=== PATIENT | male | born 1935 | race Caucasian/White ===

== ENCOUNTER → 2016-08-27 | Outpatient (CLI) | payer OTHER ==
[~2016-08-27] MED LIST: ADVAIR HFA 230M12 GM INH; APAP650 PO; ASPIRIN325 PO; COLACE100 MG PO; DEMADEX20 MG PO; DIFLUCAN200 MG PO; DOXYCYCLINE 10100 MG PO; DOXYCYCLINE HY100 MG PO; DUONEB 2.5-0.5 M3 ML INH; FLOVENT DISKUS50 MCG IH; GABAPENTIN 100100 MG PO; GLIPIZIDE 10 MG10 MG PO; HUMALOG MI100 UNIT/6 SQ; HUMALOG100 UNIT/1 SUBQ; HYDROCODONE-AP1 EAC6 PO; INVANZ1 GM IV; KLOR-CON 1010 MEQ PO; LASIX 20 MG TAB20 MG PO; LASIX 40 MG TAB40 M2 PO; LEVAQUIN 500 M500 M4 PO; LEVEMIR SUBQ; METOLAZONE 2.52.5 M1 PO; MILK OF MA2400 MG/10 PO; MIRALAX17 GM PO; MIRAPEX1 MG PO; MUCINEX TA600 MG/TA2 PO; NORCO 5-325 TA1 EACH PO; NOVOLIN R100 UNIT/3 SUBQ; NOVOLOG100 UNIT/1 SUBQ; PLAVIX 300 MG300 M1 PO; PLAVIX 75 MG TA75 M1 PO; POTASSIUM20 PO; PREDNISONE 10 M10 M1 PO; PREDNISONE 10 M10 MG PO; PREDNISONE 20 M20 MG PO; QUALAQUIN324 MG PO; REGRANEX1 TUBE TOP; SIMVASTATIN40 MG PO; SINGULAIR 10 MG10 M1 PO; TORSEMIDE20 MG PO; UNICOMPLEX M TA1 TA1 PO; VALTREX 500 MG500 MG PO; VANCO1GM IVPB; VANCOMYCIN500 MG/VIA IV; VENTOLIN HFA 1818 GM INH; VITAMINC500 PO; ZYRTEC10 MG PO; [UNRECOGNIZED DRUG - MIXTURE]; [UNRECOGNIZED DRUG - MIXTURE] TOP
== END ==
LOC: HYPER 07:04
DX: L89.323 Pressure ulcer of left buttock, stage 3 (principal); L89.313 Pressure ulcer of right buttock, stage 3; I87.2 Venous insufficiency (chronic) (peripheral); I89.0 Lymphedema, not elsewhere classified; E11.22 Type 2 diabetes mellitus with diabetic chronic kidney disease; N18.9 Chronic kidney disease, unspecified; I50.42 Chronic combined systolic (congestive) and diastolic (congestive) heart failure; I25.10 Atherosclerotic heart disease of native coronary artery without angina pectoris; J44.9 Chronic obstructive pulmonary disease, unspecified; E11.51 Type 2 diabetes mellitus with diabetic peripheral angiopathy without gangrene; E78.00 Pure hypercholesterolemia, unspecified

== ENCOUNTER → 2016-09-13 | Outpatient (CLI) | payer OTHER | LOC: HYPER 07:06 | DX: L89.323 Pressure ulcer of left buttock, stage 3 (principal); L89.313 Pressure ulcer of right buttock, stage 3; L89.892 Pressure ulcer of other site, stage 2; I87.2 Venous insufficiency (chronic) (peripheral); I89.0 Lymphedema, not elsewhere classified; E11.69 Type 2 diabetes mellitus with other specified complication; E11.22 Type 2 diabetes mellitus with diabetic chronic kidney disease; N18.9 Chronic kidney disease, unspecified; I50.42 Chronic combined systolic (congestive) and diastolic (congestive) heart failure; E11.51 Type 2 diabetes mellitus with diabetic peripheral angiopathy without gangrene; J44.9 Chronic obstructive pulmonary disease, unspecified; I25.10 Atherosclerotic heart disease of native coronary artery without angina pectoris; E78.00 Pure hypercholesterolemia, unspecified ==

== ENCOUNTER → 2016-09-18 | Outpatient (CLI) | payer OTHER ==
[~2016-09-18] VITALS: Ht 162.6 cm; Wt 103.9 kg
[~2016-09-18] MED LIST changes: +ALBUTEROL2.5 MG/31 INH; +ANUSOL-HC25 MG RECTAL; +ATIVAN0.5 MG PO; +BISACODYL SUPP10 MG RECTAL; +BREO ELLIPTA 11 EACH INH; +GABAPENTIN100 MG PO; +LASIX 80 MG TAB80 MG PO; +LEVEMIR SQ; +LIPITOR 20 MG T20 M1 PO; +MINTOX PLUS TA1 EACH PO; +NOVOLOG100 UNIT/1 SQ; +NYSTATIN1 EA10 TOP; +PROAIR HFA8.5 GM INH; +PROTONIX40 M1 PO; +TRAZODONE HCL50 MG PO
[2016-09-18 12:29] VITALS: BP 124/66
[2016-09-18 12:47] LABS: HEMATOCRIT 31.5 % (42.0-52.0); HEMOGLOBIN 10.1 gm/dL (14.0-18.0); MCH 28.6 pg (26.0-34.0); MCHC 32.2 g/dL (28.0-37.0); MCV 88.8 fL (80.0-100.0); RBC 3.54 mil/uL (4.50-6.00); RDW 16.1 % (10.5-14.5)
[2016-09-18 12:54] LABS: CALCIUM 8.4 mg/dL (8.5-10.1); CREATININE 1.9 mg/dL (0.7-1.3); POTASSIUM 3.5 mmol/L (3.5-5.1)
[2016-09-18 13:12] LABS: INR 1.1; PROTIME 11.5 Seconds (9.3-11.4)
[2016-09-18 17:09] VITALS: BP 134/54
== END ==
LOC: SPEC 11:56
PROVIDERS: Radiology Vascular & Interventional Radiology
DX: Z45.2 Encounter for adjustment and management of vascular access device (principal); E11.40 Type 2 diabetes mellitus with diabetic neuropathy, unspecified; E11.21 Type 2 diabetes mellitus with diabetic nephropathy; I73.9 Peripheral vascular disease, unspecified; J44.9 Chronic obstructive pulmonary disease, unspecified; I12.9 Hypertensive chronic kidney disease with stage 1 through stage 4 chronic kidney disease, or unspecified chronic kidney disease; E11.22 Type 2 diabetes mellitus with diabetic chronic kidney disease; N18.3 Chronic kidney disease, stage 3 (moderate); I25.10 Atherosclerotic heart disease of native coronary artery without angina pectoris; I50.9 Heart failure, unspecified; Z90.49 Acquired absence of other specified parts of digestive tract; M86.9 Osteomyelitis, unspecified